=== PATIENT | female | born 2000 | race Caucasian/White ===

== ENCOUNTER 2020-11-22 13:48 | Emergency (ER) | payer SELFPAY ==
[2020-11-22 14:03] VITALS: BP 155/90; PULSE 101; TEMP 98.3; BMI 30.9
== END 2020-11-22 15:49 | disposition home or self-care (01) ==
LOC: JER 13:48
DX: J98.8 Other specified respiratory disorders (principal); Z11.52 Encounter for screening for COVID-19
CPT/HCPCS: 99283-25; C9803; U0003

== ENCOUNTER 2022-11-07 21:45 | Emergency (ER) | payer OTHER ==
[2022-11-07 21:55] VITALS: BMI 31.8
[2022-11-07] MEDS ORDERED: ACETAMINOPHEN 1000 MG/100 ML BAG IVPB ONE (23:20)
[2022-11-07] MEDS ORDERED: SODIUM CHLORIDE 0.9% 1000 ML INFUS.BAG IV ONE (23:20)
[2022-11-07] MEDS ORDERED: ONDANSETRON 4 MG/2 ML VIAL IVPUSH ONE (23:20)
[2022-11-08] MEDS ORDERED: ONDANSETRON 4 MG/2 ML VIAL ONE (00:26)
[2022-11-08 00:31] LABS: BASO % 1.1 % (0-2.0); EOS % 1.8 % (0-4.5); HEMATOCRIT 31.1 % (32.4-45.2); HEMOGLOBIN 9.5 GM/dL (10.7-15.3); LYMPH % 44.3 % (8-40); MCHC 30.6 g/dl (32.0-36.0); MEAN CELL VOLUME 64.9 fl (80-96); MEAN PLT VOLUME 6.5 fl (7.5-11.1); MONO % 5.1 % (3.8-10.2); NEUT % 47.7 % (42.8-82.8); PLATELET COUNT 469 10^3/uL (134-434); RBC 4.79 M/mm3 (3.60-5.2); WHITE BLOOD COUNT 10.1 K/mm3 (4.0-10.0)
[2022-11-08 00:37] LABS: MCH 19.9 pg (25.7-33.7)
[2022-11-08 00:44] LABS: INR 1.05 (0.83-1.09); PROTHROMBIN TIME (PATIENT) 12.2 SEC (9.7-13.0)
[2022-11-08 00:46] LABS: ACTIVATED PTT 31.6 SECONDS (25.2-36.5)
[2022-11-08 00:59] LABS: PH,URINE 6.5 (5.0-8.0); URINE APPEARANCE CLEAR; URINE BILIRUBIN NEGATIVE (NEGATIVE); URINE COLOR YELLOW; URINE GLUCOSE (UA) NEGATIVE (NEGATIVE); URINE KETONE NEGATIVE (NEGATIVE); URINE LEUK ESTERASE NEGATIVE (NEGATIVE); URINE NITRITE NEGATIVE (NEGATIVE); URINE PROTEIN NEGATIVE (NEGATIVE); URINE UROBILINOGEN 0.2 mg/dL (0.2-1.0)
[2022-11-08 01:00] LABS: ALBUMIN 4.1 g/dl (3.4-5.0); BLOOD UREA NITROGEN 11.2 mg/dL (7-18); CALCIUM 8.8 mg/dL (8.5-10.1)
[2022-11-08 01:04] LABS: CREATININE 0.6 mg/dL (0.55-1.3)
[2022-11-08 01:06] LABS: BILIRUBIN,TOTAL 0.4 mg/dL (0.2-1); TOT PROT 8.1 g/dl (6.4-8.2)
[2022-11-08 04:41] LABS: PLATELET ESTIMATE ADEQUATE
[2022-11-08 04:42] LABS: OVALOCYTE 2+
[2022-11-08 11:04] VITALS: BP 139/79; PULSE 83; RESP 15; TEMP 98.8
== END 2022-11-08 13:07 | disposition home or self-care (01) ==
LOC: JER 21:45
PROC: 3E0333Z Introduction of Anti-inflammatory into Peripheral Vein, Percutaneous Approach (ICD-10-PCS; principal; 2022-11-07)
PROC: 3E033GC Introduction of Other Therapeutic Substance into Peripheral Vein, Percutaneous Approach (ICD-10-PCS; 2022-11-07)
DX: N83.202 Unspecified ovarian cyst, left side (principal); R19.09 Other intra-abdominal and pelvic swelling, mass and lump; R10.32 Left lower quadrant pain
CPT/HCPCS: 36415; 74176-TC; 76830-TC; 76856-TC; 80053; 81003; 83690; 84703; 85025; 85610; 85730; 86850; 86900; 86901; 87086; 87186; 99285-25

== ENCOUNTER 2023-03-19 01:53 | Emergency (ER) | payer SELFPAY ==
[2023-03-19 02:03] VITALS: BMI 37.2
[2023-03-19] MEDS ORDERED: METOCLOPRAMIDE HCL INJECTION 10 MG/2 ML VIAL IVPB ONE (02:24)
[2023-03-19] MEDS ORDERED: ACETAMINOPHEN 1000 MG/100 ML BAG IVPB ONE (02:24)
[2023-03-19] MEDS ORDERED: SODIUM CHLORIDE 0.9% 500 ML INFUS.BAG IV ONE (02:24)
[2023-03-19] MEDS ORDERED: ACETAMINOPHEN INJECTION 100 ML IVPB ONE (02:38)
[2023-03-19] MEDS ORDERED: METOCLOPRAMIDE HCL INJECTION 10 MG/2 ML VIAL ONE (02:39)
[2023-03-19 03:50] LABS: POTASSIUM 4.2 mmol/L (3.5-5.1)
[2023-03-19 03:51] LABS: CALCIUM 8.8 mg/dL (8.5-10.1)
[2023-03-19 03:52] LABS: ALBUMIN 3.8 g/dl (3.4-5.0); BLOOD UREA NITROGEN 7.9 mg/dL (7-18); INR 1.06 (0.83-1.09); PROTHROMBIN TIME (PATIENT) 12.3 SEC (9.7-13.0)
[2023-03-19 03:55] LABS: ACTIVATED PTT 27.5 SECONDS (25.2-36.5); CREATININE 0.6 mg/dL (0.55-1.3)
[2023-03-19 03:57] LABS: PHOSPHOROUS 2.3 mg/dL (2.5-4.9); TOT PROT 7.8 g/dl (6.4-8.2)
[2023-03-19 04:34] LABS: BILIRUBIN,TOTAL 0.2 mg/dL (0.2-1)
[2023-03-19 05:08] VITALS: BP 132/76; PULSE 92; RESP 18; TEMP 97.8
[2023-03-19 05:11] LABS: BASO % 0.6 % (0-2.0); EOS % 1.4 % (0-4.5); HEMATOCRIT 32.3 % (32.4-45.2); HEMOGLOBIN 9.8 GM/dL (10.7-15.3); LYMPH % 30.4 % (8-40); MCHC 30.2 g/dl (32.0-36.0); MEAN CELL VOLUME 66.3 fl (80-96); MEAN PLT VOLUME 7.2 fl (7.5-11.1); MONO % 3.8 % (3.8-10.2); NEUT % 63.8 % (42.8-82.8); PLATELET COUNT 498 10^3/uL (134-434); RBC 4.88 M/mm3 (3.60-5.2); RDW 20.9 % (11.6-15.6); WHITE BLOOD COUNT 10.6 K/mm3 (4.0-10.0)
[2023-03-19] MEDS ORDERED: KETOROLAC TROMETHAMINE 15 MG/ML VIAL IVPUSH ONE ×2 (05:25→06:57)
[2023-03-19] MEDS ORDERED: KETOROLAC TROMETHAMINE 15 MG/ML VIAL ONE ×2 (05:29→07:04)
== END 2023-03-19 07:32 | disposition home or self-care (01) ==
LOC: JER 01:53
PROC: 3E033NZ Introduction of Analgesics, Hypnotics, Sedatives into Peripheral Vein, Percutaneous Approach (ICD-10-PCS; principal; 2023-03-19)
PROC: 3E033GC Introduction of Other Therapeutic Substance into Peripheral Vein, Percutaneous Approach (ICD-10-PCS; 2023-03-19)
PROC: 3E033GC Introduction of Other Therapeutic Substance into Peripheral Vein, Percutaneous Approach (ICD-10-PCS; 2023-03-19)
PROC: 3E033NZ Introduction of Analgesics, Hypnotics, Sedatives into Peripheral Vein, Percutaneous Approach (ICD-10-PCS; 2023-03-19)
DX: R51.9 Headache, unspecified (principal); R11.0 Nausea
CPT/HCPCS: 36415; 70460-TC; 71046-TC-FY; 80053; 83735; 84100; 84484; 84703; 85025; 85379; 85610; 85730; 93005; 93010; 99285-25; Q9967

== ENCOUNTER 2024-01-29 23:44 | Emergency (ER) | payer SELFPAY ==
[2024-01-29 23:52] VITALS: BP 157/95; PULSE 85; RESP 18; TEMP 97.7; BMI 34.5
[2024-01-30] MEDS ORDERED: IBUPROFEN 600 MG TABLET (FP) PO ONE (01:34)
[2024-01-30] MEDS: IBUPROFEN 600 MG TABLET (FP) PO ONE (01:44)
== END 2024-01-30 01:51 | disposition home or self-care (01) ==
LOC: JER 23:44
DX: R07.89 Other chest pain (principal); I10 Essential (primary) hypertension; M79.602 Pain in left arm
CPT/HCPCS: 71046-TC-FY; 93005; 93010; 99284-25

== ENCOUNTER 2025-04-30 22:59 | Inpatient (IN) | payer SELFPAY ==
[2025-04-30 23:05] VITALS: BMI 38.2
[2025-04-30] MEDS ORDERED: ONDANSETRON 4 MG/2 ML VIAL ONE (23:57)
[2025-05-01] MEDS ORDERED: ACETAMINOPHEN INJECTION 100 ML ONE ×2 (00:15→07:28)
[2025-05-01] MEDS: SODIUM CHLORIDE 0.9% 500 ML INFUS.BAG IV ONE ×3 (00:18→18:26)
[2025-05-01] MEDS: ACETAMINOPHEN 1000 MG/100 ML BAG IVPB ONE (00:18)
[2025-05-01] MEDS: ONDANSETRON 4 MG/2 ML VIAL IVPB ONE (00:18)
[2025-05-01 00:28] LABS: MCHC 31.2 g/dl (32.2-35.5); MEAN CELL VOLUME 77.3 fl (79.4-94.8); MEAN PLT VOLUME 8.7 fl (9.4-12.3); RDW 23.1 % (12.1-16.5)
[2025-05-01 00:33] LABS: INR 1.49 (0.83-1.09); PROTHROMBIN TIME (PATIENT) 16.4 SEC (9.7-13.0)
[2025-05-01 00:36] LABS: ACTIVATED PTT 34.5 SECONDS (25.2-36.5)
[2025-05-01 00:47] LABS: GLUCOSE,RANDOM 144.0 mg/dL (74-106); TOT PROT 7.7 g/dl (6.4-8.2)
[2025-05-01 00:48] LABS: CO2 23.0 mmol/L (21-32)
[2025-05-01 00:50] LABS: ALK PHOS 125.0 U/L (40-150)
[2025-05-01 00:52] LABS: SGOT/AST 48.0 U/L (5-34)
[2025-05-01 00:53] LABS: CREATININE 0.85 mg/dL (0.55-1.3); LACTIC ACID 2.2 mmol/L (0.4-2.0)
[2025-05-01 01:10] LABS: HCV DIAGNOSTIC IN-HOUSE W/RFLX NON-REACTIVE (NONREACTIVE); HIV INTERPRETATION NEGATIVE (NEGATIVE)
[2025-05-01] MEDS: SODIUM CHLORIDE 0.9% 1000 ML INFUS.BAG IV STA (01:11)
[2025-05-01 01:26] LABS: SGPT/ALT 44.0 U/L (0-55)
[2025-05-01] MEDS: MAGNESIUM SULF 50% (8.12 MEQ/2 ML-1 GM VIAL) IVPB ONE (02:04)
[2025-05-01] MEDS ORDERED: MAGNESIUM SULFATE IN WATER 2 GM/50 ML IVPB IVPB ONE (02:07)
[2025-05-01 02:26] LABS: HCG,QUALITATIVE URINE Negative
[2025-05-01 02:27] LABS: EPI CELLS >36 /uL (0-25.1); HYALINE CASTS 1 /uL (0-3.1); URINE APPEARANCE TURBID; URINE BACTERIA >9,000 /uL (0-1359); URINE BILIRUBIN 1+ (NEGATIVE); URINE COLOR DK YELLOW; URINE GLUCOSE (UA) NEGATIVE (NEGATIVE); URINE KETONE TRACE (NEGATIVE); URINE LEUK ESTERASE 2+ (NEGATIVE); URINE NITRITE NEGATIVE (NEGATIVE); URINE PROTEIN 3+ (NEGATIVE); URINE RBC 72 /uL (0-23.9); URINE UROBILINOGEN 1.0 mg/dL (0.2-1.0); URINE WBC 2861 /uL (0-25.8)
[2025-05-01] MEDS: CEFTRIAXONE 1 GM in DEXTROSE 5%-WATER - 100 ML IVPB ONE (03:19)
[2025-05-01] MEDS ORDERED: CEFTRIAXONE 1 GM/50 ML BAG ONE (03:30)
[2025-05-01 05:32] LABS: LACTIC ACID 2.3 mmol/L (0.4-2.0)
[2025-05-01] MEDS: POTASSIUM CHLORIDE TABS 20 MEQ TABLET.ER (FP) PO ONE (06:07)
[2025-05-01] MEDS: SODIUM CHLORIDE 1,000 ML IV SCH (06:14)
[2025-05-01 06:55] LABS: MCHC 31.2 g/dl (32.2-35.5); MEAN CELL VOLUME 79.9 fl (79.4-94.8); MEAN PLT VOLUME 8.8 fl (9.4-12.3); RDW 23.5 % (12.1-16.5)
[2025-05-01] MEDS ORDERED: LEVOTHYROXINE NA 25 MCG TABLET (FP) PO SCH (07:00)
[2025-05-01 07:12] LABS: LACTIC ACID 2.4 mmol/L (0.4-2.0)
[2025-05-01] MEDS: ACETAMINOPHEN 1000 MG/100 ML BAG IVPB PRN (07:31)
[2025-05-01 08:23] LABS: GLUCOSE,RANDOM 111.0 mg/dL (74-106); TOT PROT 7.6 g/dl (6.4-8.2)
[2025-05-01 08:24] LABS: CO2 21.0 mmol/L (21-32)
[2025-05-01 08:26] LABS: ALK PHOS 122.0 U/L (40-150)
[2025-05-01 08:29] LABS: CREATININE 0.78 mg/dL (0.55-1.3); SGOT/AST 76.0 U/L (5-34); SGPT/ALT 81.0 U/L (0-55)
[2025-05-01 08:48] LABS: YEAST NOT SEEN (NEGATIVE)
[2025-05-01 10:13] LABS: LACTIC ACID 2.9 mmol/L (0.4-2.0)
[2025-05-01] MEDS: ENOXAPARIN NA (PORCINE) 40 MG/0.4 ML DISP.SYRIN SQ SCH (10:25)
[2025-05-01] MEDS ORDERED: ENOXAPARIN NA (PORCINE) 40 MG/0.4 ML DISP.SYRIN SQ ONE (10:40)
[2025-05-01 13:27] VITALS: RESP 18
[2025-05-01] MEDS: ACETAMINOPHEN 500 MG TABLET (FP) PO PRN (14:41)
[2025-05-01] MEDS: IBUPROFEN 600 MG TABLET (FP) PO ONE (17:43)
[2025-05-01] MEDS: CEFEPIME 2 GM in DEXTROSE 5%-WATER 100 ML IVPB SCH (18:24)
[2025-05-01] MEDS: morphine CARPU-JECT 2 MG/1 ML DISP.SYRIN IVPUSH PRN (20:01)
[2025-05-02] MEDS: ONDANSETRON 4 MG/2 ML VIAL IVPUSH PRN (01:17)
[2025-05-02] MEDS ORDERED: CEFTRIAXONE 1 GM in DEXTROSE 5%-WATER - 50 ML IVPB SCH (03:00)
[2025-05-02] MEDS: morphine CARPU-JECT 2 MG/1 ML DISP.SYRIN IVPUSH ONE (05:26)
[2025-05-02] MEDS: LEVOTHYROXINE NA 25 MCG TABLET (FP) PO SCH (06:35)
[2025-05-02 07:25] LABS: MCHC 31.4 g/dl (32.2-35.5); MEAN CELL VOLUME 81.5 fl (79.4-94.8); MEAN PLT VOLUME 8.9 fl (9.4-12.3); RDW 23.6 % (12.1-16.5)
[2025-05-02 07:54] LABS: GLUCOSE,RANDOM 133.0 mg/dL (74-106); TOT PROT 6.3 g/dl (6.4-8.2)
[2025-05-02 07:55] LABS: CO2 23.0 mmol/L (21-32)
[2025-05-02 07:57] LABS: ALK PHOS 102.0 U/L (40-150)
[2025-05-02 08:00] LABS: CREATININE 0.66 mg/dL (0.55-1.3); SGOT/AST 34.0 U/L (5-34); SGPT/ALT 58.0 U/L (0-55)
[2025-05-02] MEDS: KETOROLAC TROMETHAMINE 15 MG/ML VIAL IVPUSH PRN (09:52)
[2025-05-02] MEDS: KETOROLAC TROMETHAMINE 15 MG/ML VIAL IVPUSH SCH (09:55)
[2025-05-02] MEDS: MELATONIN 5 MG TABLETS PO ONE (21:21)
[2025-05-03] MEDS: MELATONIN 5 MG TABLETS PO ONE ×2 (00:57→08:02)
[2025-05-03 07:50] LABS: MCHC 33.2 g/dl (32.2-35.5); MEAN CELL VOLUME 80.5 fl (79.4-94.8); MEAN PLT VOLUME 9.7 fl (9.4-12.3); RDW 23.4 % (12.1-16.5)
[2025-05-03 08:13] LABS: GLUCOSE,RANDOM 110.0 mg/dL (74-106); TOT PROT 6.5 g/dl (6.4-8.2)
[2025-05-03 08:14] LABS: CO2 23.0 mmol/L (21-32); INR 1.21 (0.83-1.09); PROTHROMBIN TIME (PATIENT) 13.2 SEC (9.7-13.0)
[2025-05-03 08:16] LABS: ALK PHOS 118.0 U/L (40-150)
[2025-05-03 08:18] LABS: SGOT/AST 55.0 U/L (5-34); SGPT/ALT 68.0 U/L (0-55)
[2025-05-03 08:19] LABS: CREATININE 0.64 mg/dL (0.55-1.3)
[2025-05-03] MEDS: SODIUM CHLORIDE 0.9% 1000 ML INFUS.BAG IV ONE (08:30)
[2025-05-03] MEDS: ONDANSETRON 4 MG/2 ML VIAL IVPB ONE (17:12)
[2025-05-03] MEDS: CEFAZOLIN SODIUM 2 GM in DEXTROSE 5%-WATER 100 ML IVPB SCH (18:13)
[2025-05-03] MEDS: MELATONIN 5 MG TABLETS PO SCH (22:08)
[2025-05-03] MEDS: CEFEPIME HCL 2 GM VIAL (RESTRICTED TO ID) IVPB SCH (23:28)
[2025-05-04 01:32] VITALS: TEMP 98.6
[2025-05-04 07:03] LABS: MCHC 33.7 g/dl (32.2-35.5); MEAN CELL VOLUME 82.2 fl (79.4-94.8); MEAN PLT VOLUME 9.5 fl (9.4-12.3); RDW 24.0 % (12.1-16.5)
[2025-05-04 07:08] VITALS: BP 163/110; PULSE 89
[2025-05-04 08:23] LABS: GLUCOSE,RANDOM 84.0 mg/dL (74-106); TOT PROT 6.8 g/dl (6.4-8.2)
[2025-05-04 08:24] LABS: CO2 26.0 mmol/L (21-32)
[2025-05-04 08:26] LABS: ALK PHOS 209.0 U/L (40-150)
[2025-05-04 08:28] LABS: SGOT/AST 174.0 U/L (5-34); SGPT/ALT 149.0 U/L (0-55)
[2025-05-04 08:29] LABS: CREATININE 0.66 mg/dL (0.55-1.3)
== END 2025-05-04 13:44 | disposition home or self-care (01) | DRG 720 ==
LOC: JER 22:59 → JERBED 05-01 05:05 → J4W 05-01 10:57 → OBSVTOIN 05-03 08:22
PROVIDERS: ADMIT Internal Medicine; ATTEND Student in an Organized Health Care Education/Training Program
DX: A41.9 Sepsis, unspecified organism (principal); N10 Acute pyelonephritis; B96.20 Unspecified Escherichia coli [E. coli] as the cause of diseases classified elsewhere; E03.9 Hypothyroidism, unspecified; E11.9 Type 2 diabetes mellitus without complications; E66.9 Obesity, unspecified; N39.0 Urinary tract infection, site not specified
CPT/HCPCS: 36415; 71045-TC-FY; 71275-TC; 74176-TC; 80053; 81003; 82962; 83036; 83605; 83735; 84100; 84703; 85025; 85610; 85730; 86803; 86850; 86900; 86901; 87040; 87086; 87389; 87637-QW; 93005; 93010; 99285-25; G0378; Q9967